=== PATIENT | female | born 1990 | race Two or more races ===

== ENCOUNTER 2018-07-12 19:48 | Emergency (ER) | payer OTHER ==
[~2018-07-12] VITALS: Ht 180.3 cm; Wt 97.5 kg
[2018-07-12] MEDS ORDERED: LAMICTAL XR300 MG (20:03)
[2018-07-12] MEDS ORDERED: ADIPEX-P37.5 MG (20:03)
== END 2018-07-12 22:17 | disposition home or self-care (01) ==
LOC: ER 19:48 → EDBD 19:48 → ER 20:02
DX: N39.0 Urinary tract infection, site not specified (principal)

== ENCOUNTER 2019-11-17 13:00 | Inpatient (IN) | payer OTHER ==
[~2019-11-17] VITALS: Ht 182.9 cm; Wt 107.5 kg
[~2019-11-17 13:00] MED LIST: ADIPEX-P37.5 MG; LAMICTAL XR300 MG
[2019-11-26] MEDS ORDERED: PRENATAL TABLE1 EACH PO (18:35)
== END 2019-11-29 18:22 | disposition home or self-care (01) | DRG 807 ==
LOC: SURG-SUITE 11-26 17:41 → LDR 11-26 17:41 → SURG-SUITE 11-27 06:08 → LDR 11-30 13:00 → OB/GYN 11-30 13:00
PROVIDERS: ADMIT Obstetrics & Gynecology; ATTEND Obstetrics & Gynecology
PROC: 10E0XZZ Delivery of Products of Conception, External Approach (ICD-10-PCS; principal; 2019-11-27)
PROC: 4A1HXFZ Monitoring of Products of Conception, Cardiac Rhythm, External Approach (ICD-10-PCS; 2019-11-27)
PROC: 0HQ9XZZ Repair Perineum Skin, External Approach (ICD-10-PCS; 2019-11-27)
PROC: 3E033VJ Introduction of Other Hormone into Peripheral Vein, Percutaneous Approach (ICD-10-PCS; 2019-11-27)
DX: O42.02 Full-term premature rupture of membranes, onset of labor within 24 hours of rupture (principal); Z37.0 Single live birth; Z3A.39 39 weeks gestation of pregnancy; O70.0 First degree perineal laceration during delivery